=== PATIENT | female | born 1970 | race Caucasian/White ===

== ENCOUNTER 2019-11-19 08:26 | Emergency (ER) | payer SELFPAY ==
[~2019-11-19] VITALS: Ht 175.3 cm; Wt 84.1 kg
[2019-11-19 08:47] VITALS: TEMP 98
[2019-11-19 09:28] LABS: BASO % 0.5 % (0.0-2.0); EOS # 0.3 (0.0-0.7); EOS % 3.4 % (0-4.0); GRAN # 4.4 (1.4-6.5); GRAN % 56.8 % (42.2-75.2); HEMATOCRIT 37.1 % (37.0-47.0); HEMOGLOBIN 11.6 g/dl (12.5-16.0); LYMPH # 2.5 (1.2-3.4); LYMPH % 32.2 % (20.0-51.0); MEAN CELL VOLUME 79 fl (80.0-100.0); MEAN CORPUSCULAR HEMOGLOBIN 25 pg (27.0-31.0); MEAN CORPUSCULAR HGB CONC 31 g/dl (33.0-37.0); MEAN PLATELET VOLUME 10.7 fl (7.4-10.4); MONO # 0.5 (0.1-0.6); PLATELET COUNT 205 K/mm3 (130-400); RED BLOOD COUNT 4.69 M/mm3 (4.10-5.30); REDCELL DISTRIBUTION WIDTH-CV 18.7 % (11.5-14.5)
[2019-11-19 09:38] LABS: ALANINE AMINOTRANSFERASE 13 U/L (4-34); ALBUMIN 4.5 gm/dL (3.5-5.0); ALKALINE PHOSPHATASE 61 U/L (50-136); ANION GAP 8 mmol/L (7-16); AST,SGOT 24 U/L (15-37); BILIRUBIN,TOTAL 0.5 mg/dL (0.0-1.0); BLOOD UREA NITROGEN 13 mg/dL (7-17); CALCIUM 10.3 mg/dL (8.4-10.2); CARBON DIOXIDE 24 mmol/L (22-30); CHLORIDE 106 mmol/L (98-107); CREATININE, serum 0.54 (0.52-1.25); GLUCOSE 91 mg/dL (74-106); POTASSIUM 3.8 mmol/L (3.4-5.0); SODIUM 138 mmol/L (137-145); TOTAL PROTEIN 7.8 gm/dL (6.4-8.2)
[2019-11-19 09:55] LABS: TROPONIN-I < 0.012 ng/mL (0.000-0.035)
[2019-11-19] MEDS ORDERED: OMNICEF 300MG300 MG PO (11:46)
[2019-11-19] MEDS ORDERED: BONINE25 MG PO (11:47)
[2019-11-19 12:16] VITALS: BP 141/87; PULSE 61
== END 2019-11-19 11:55 | disposition home or self-care (01) ==
LOC: COL.ER 08:26
PROVIDERS: Family Medicine
DX: R42 Dizziness and giddiness (principal); H70.90 Unspecified mastoiditis, unspecified ear; Z88.1 Allergy status to other antibiotic agents
CPT/HCPCS: A9585; J1790; J7120